=== PATIENT | female | born 1995 | race Caucasian/White ===

== ENCOUNTER 2016-11-04 10:58 | Inpatient (IN) ==
[2016-11-04] MEDS ORDERED: PEPCID PO PRN (20:37)
[2016-11-04] MEDS ORDERED: TYLENOL PO PRN (20:37)
[2016-11-04] MEDS ORDERED: ZOFRAN IV PRN (20:37)
[2016-11-04] MEDS ORDERED: KEFZOL 1 GM/D5W 50 ML IV PRN (20:37)
[2016-11-04] MEDS ORDERED: BRETHINE SUBQ PRN (20:37)
[2016-11-04] MEDS ORDERED: AMBIEN PO PRN (20:37)
[2016-11-04] MEDS ORDERED: REGLAN PO ONE (20:37)
[2016-11-04] MEDS ORDERED: STADOL IV PRN ×3 (20:37)
[2016-11-04] MEDS ORDERED: PEPCID PO ONE (20:37)
[2016-11-04] MEDS ORDERED: PEPCID IV PRN (20:37)
[2016-11-04] MEDS ORDERED: PITOCIN 30 UNITS/LR 500 ML IV SCH (20:45)
[2016-11-04] MEDS ORDERED: LR 1,000 ML IV SCH (20:45)
[2016-11-04 22:40] LABS: MANUAL DIFF NEEDED? NO
[2016-11-04] MEDS ORDERED: CYTOTEC PO ONE (23:00)
[2016-11-05] MEDS ORDERED: MINERAL OIL ONE (02:36)
[2016-11-05] MEDS ORDERED: XYLOCAINE-MPF 1% ONE (02:36)
[2016-11-05] MEDS ORDERED: CYTOTEC PO SCH (03:00)
[2016-11-05] MEDS ORDERED: PITOCIN 20 UNITS/LR 1,000 ML ONE (03:30)
[2016-11-05] MEDS ORDERED: PERI MEDS (DERMOPLAST/NUPERCAINAL/TUCKS) ONE (03:30)
[2016-11-05] MEDS ORDERED: BOOSTRIX VACCINE IM ONE (04:20)
[2016-11-05] MEDS ORDERED: NORCO-5 PO PRN (04:20)
[2016-11-05] MEDS ORDERED: CYTOTEC PO PRN (04:20)
[2016-11-05] MEDS ORDERED: MINERAL OIL MISC PRN (04:20)
[2016-11-05] MEDS ORDERED: PITOCIN 30 UNITS/LR 500 ML IV ONE (04:20)
[2016-11-05] MEDS ORDERED: NORCO-10 PO PRN (04:20)
[2016-11-05] MEDS ORDERED: HYDROXYZINE IM PRN (04:20)
[2016-11-05] MEDS ORDERED: BENADRYL IV PRN (04:20)
[2016-11-05] MEDS ORDERED: PERI MEDS (DERMOPLAST/NUPERCAINAL/TUCKS) MISC PRN (04:20)
[2016-11-05] MEDS ORDERED: PITOCIN IM PRN (04:20)
[2016-11-05] MEDS ORDERED: AMBIEN PO PRN (04:20)
[2016-11-05] MEDS ORDERED: BENADRYL PO PRN (04:20)
[2016-11-05] MEDS ORDERED: PITOCIN 20 UNITS/LR 1,000 ML IV SCH (04:20)
[2016-11-05] MEDS ORDERED: HYDROXYZINE PO PRN (04:20)
[2016-11-05] MEDS ORDERED: XYLOCAINE-MPF 1% INJ PRN (04:20)
[2016-11-05] MEDS ORDERED: M-M-R II VACCINE SUBQ ONE (04:20)
--- NOTE | 2016-11-05 04:25 | OPERATIVE NOTE ---
PROCEDURE DATE: 11/05/2016 PREOPERATIVE DIAGNOSES: 1. Intrauterine at 39 and 5. 2. Labor induction. 3. Maternal obesity. POST DELIVERY DIAGNOSES: 1. Intrauterine at 39 and 5. 2. Labor induction. 3. Maternal obesity. PROCEDURE: Vaginal delivery. PHYSICIAN: Rob Dupree MD. ANESTHESIA: IV sedation and local. FINDINGS: A viable male infant, 6 pounds 5 ounces, 9 and 10 Apgars. Periurethral tears repaired with 3-0 Polysorb. ESTIMATED BLOOD LOSS: 100 mL. COUNTS: All counts correct. DESCRIPTION: Ms. Baker is a 21-year-old primigravida at 39 and 5 who was admitted last night for labor induction. She was 2 cm and thick. She received 1 dose of Cytotec, entered into active labor. Received IV anesthesia. Became complete and began pushing. She delivered a viable male , occiput anterior. Once head delivered, shoulders and rest of the body delivered easily. placed on mother's abdomen. Cord doubly clamped and cut. Care of infant taken over by nursery personnel. Cord was inspected. Three-vessel cord was noted. Cord blood was obtained. Gentle traction on the cord resulted in delivery of the placenta after approximately 3 minutes. It was inspected and found to be intact. Vaginal sweep did not reveal any clots, remaining placental tissue. Bilateral periurethral lacerations noted. Local anesthetic used, closed with stitches of 3-0 Polysorb. Once this was done, all counts were correct. Two sharps, ten Ray-Brianna, one vaginal pack. Estimated blood loss 100 mL. Expect routine .
[2016-11-05] MEDS: MOTRIN PO PRN ×2 (04:26→18:57)
[2016-11-05 10:00] LABS: BASO% 0.1 % (0.0-0.8); EOS# 0.25 X1000 (0.0-0.7); EOS% 1.6 % (0.0-10.0); HEMATOCRIT 39.4 % (37.0-47.0); HEMOGLOBIN 13.1 g/dL (12.0-16.0); IMM GRAN# 0.05 X1000 (0.0-0.04); IMM GRAN% 0.3 % (0.0-0.5); LYMPH# 3.24 X1000 (1.2-3.4); LYMPH% 20.8 % (20.5-51.1); MCH 27.9 PG (27-31); MCHC 33.2 g/dL (33-37); MONO# 1.15 X1000 (0.11-0.59); MONO% 7.4 % (1.7-9.3); MPV 11.2 FL (7.4-10.4); NEUT% 69.8 % (42.2-75.2); PLT 250 X1000 (130-400); RBC 4.69 XMIL (4.2-5.4)
[2016-11-05] MEDS: PRECARE PO SCH (15:42)
[2016-11-05] MEDS: PERICOLACE PO SCH ×2 (18:58→19:15)
[2016-11-06 06:09] LABS: MANUAL DIFF NEEDED? NO
[2016-11-06 06:13] LABS: BASO% 0.2 % (0.0-0.8); EOS# 0.36 X1000 (0.0-0.7); EOS% 2.9 % (0.0-10.0); HEMATOCRIT 36.8 % (37.0-47.0); IMM GRAN# 0.04 X1000 (0.0-0.04); IMM GRAN% 0.3 % (0.0-0.5); LYMPH# 3.37 X1000 (1.2-3.4); MCH 27.8 PG (27-31); MCHC 32.6 g/dL (33-37); MCV 85.4 FL (81-99); MONO% 11.2 % (1.7-9.3); MPV 11.3 FL (7.4-10.4); NEUT% 58.4 % (42.2-75.2); PLT 225 X1000 (130-400); RBC 4.31 XMIL (4.2-5.4)
[2016-11-06] MEDS: MOTRIN PO PRN (08:21)
[2016-11-06] MEDS: PRECARE PO SCH (08:21)
[2016-11-06] MEDS: PERICOLACE PO SCH (20:15)
[2016-11-07 07:56] VITALS: BP 119/64
[2016-11-07] MEDS: PRECARE PO SCH (08:25)
[2016-11-07] MEDS: MOTRIN PO PRN (08:25)
== END 2016-11-07 13:38 | disposition home or self-care (01) | DRG 775 ==
LOC: P.LD 20:35 → P.WC 11-05 10:11
PROVIDERS: ADMIT Obstetrics & Gynecology; ATTEND Obstetrics & Gynecology
PROC: 10E0XZZ Delivery of Products of Conception, External Approach (ICD-10-PCS; principal; 2016-11-05)
PROC: 0UQMXZZ Repair Vulva, External Approach (ICD-10-PCS; 2016-11-05)
DX: O99.214 Obesity complicating childbirth (principal); E66.9 Obesity, unspecified; Z37.0 Single live birth; Z3A.39 39 weeks gestation of pregnancy; O71.82 Other specified trauma to perineum and vulva
CPT/HCPCS: 59025; 81003; 85025; 86592; G0378; J0595; J2405; J2590; J7120